=== PATIENT | female | born 1990 | race Caucasian/White ===

== ENCOUNTER 2018-07-12 12:07 | Inpatient (IN) | payer OTHER ==
[2018-07-12] VITALS (15 sets, daily range): BP systolic 103–115; BP diastolic 45–68
[~2018-07-12] VITALS: Ht 162.6 cm; Wt 64.5 kg
--- NOTE | 2018-07-12 12:13 | NUR ---
PATRICIA FROM PD STATION-- PER REPORT PT WALKED IN TO [facility] STATION. PATIENT RECEIVED, SCREAMING AND YELLING, APPEARS ANXIOUS AND AGITATION. PATIENT IS CONFUSED AND NOT COOPERATIVE. PATIENT IS AFEBRILE. TACHY ON TELE MONITOR. SOCORRO WRAPPER DIPPER AT BEDSIDE FOR EVAL
[2018-07-12] MEDS ORDERED: HALOPERIDOL LACTATE INJ 5 MG/ML VIAL ONE (12:17)
[2018-07-12] MEDS ORDERED: LORAZEPAM INJ 2 MG/ML VIAL ONE (12:17)
[2018-07-12] MEDS ORDERED: diphenhydrAMINE HCL 50 MG/ML VIAL ONE (12:17)
[2018-07-12 12:22] LABS: BASOPHILS # (AUTO) 0.2 /CMM (0.0-0.2); BASOPHILS % (AUTO) 1.7 % (0.0-2.0); EOSINOPHILS % (AUTO) 0.1 % (0.0-6.0); HEMATOCRIT 44 % (33-45); HEMOGLOBIN 14.3 g/dL (11.5-14.8); LYMPHOCYTES # (AUTO) 2.3 /CMM (0.8-4.8); LYMPHOCYTES % (AUTO) 21.3 % (20.0-44.0); MEAN CORPUSCULAR HEMOGLOBIN 25 PG (26.0-33.0); MEAN CORPUSCULAR HGB CONC 32 g/dl (31.0-36.0); MEAN CORPUSCULAR VOLUME 78 fL (82-100); MONOCYTES # (AUTO) 0.7 /CMM (0.1-1.30); MONOCYTES % (AUTO) 6.8 % (2.0-12.0); NEUTROPHILS # (AUTO) 7.7 /CMM (1.8-8.9); NEUTROPHILS % (AUTO) 70.1 % (43.0-81.0); PLATELET COUNT (AUTO) 546 /CMM (150-450); RDW COEFFICIENT OF VARIATION 13.4 (11.5-15.0); WHITE BLOOD COUNT (AUTO) 10.9 K/uL (4.3-11.0)
[2018-07-12] MEDS ORDERED: HALOPERIDOL LACTATE INJ 5 MG/ML VIAL IM ONE (12:30)
[2018-07-12] MEDS ORDERED: diphenhydrAMINE HCL 50 MG/ML VIAL IM ONE (12:30)
[2018-07-12] MEDS ORDERED: LORAZEPAM INJ 2 MG/ML VIAL IM ONE (12:30)
[2018-07-12] MEDS ORDERED: IV NS 0.9% 1,000 ML BAG IV ONE (12:30)
--- NOTE | 2018-07-12 12:33 | NUR ---
EKG IN PROGRESS
[2018-07-12 12:47] LABS: ALANINE AMINOTRANSFERASE 18 U/L (12-78); ALBUMIN 4.5 g/dL (3.4-5.0); ALKALINE PHOSPHATASE 127 U/L (46-116); ASPARTATE AMINOTRANSFERASE 50 U/L (15-37); BILIRUBIN,DIRECT 0.2 mg/dL (0.0-0.2); BILIRUBIN,TOTAL 0.9 mg/dL (0.2-1.0); CALCIUM, SERUM 9.5 mg/dL (8.5-10.1); CARBON DIOXIDE 24 mmol/L (21-32); CHLORIDE 104 mmol/L (98-107); CREATININE 1.3 mg/dL (0.6-1.3); GLUCOSE 101 mg/dL (74-106); POTASSIUM 4.1 mmol/L (3.5-5.1); SALICYLATE 10.5 mg/dL (2.8-20.0); SODIUM SERUM 145 mmol/L (136-145); TOTAL PROTEIN, SERUM 9.9 g/dL (6.4-8.2); UREA NITROGEN, BLOOD 27 mg/dL (7-18)
[2018-07-12 12:47] LABS: APPEARANCE,URINE Cloudy (CLEAR); BILIRUBIN,URINE SMALL (NEGATIVE); BLOOD, URINE Trace-lysed Ery/uL (NEGATIVE); COLOR,URINE Dark (YELLOW); KETONES,URINE 15 (NEGATIVE); LEUKOCYTE ESTERASE ,URINE Negative (NEGATIVE); NITRITE, URINE Negative (NEGATIVE); UGLUCOSE Negative (NEGATIVE)
[2018-07-12 12:50] LABS: ACETAMINOPHEN 0 ug/ml (10-30); ALCOHOL, BLOOD < 3 mg/dL (0-0)
[2018-07-12 12:52] LABS: PROTEIN,URINE >300 mg/dl (NEGATIVE)
[2018-07-12 12:59] LABS: RBC,URINE 0-2 /HPF (0-2)
[2018-07-12 13:00] LABS: BACTERIA,URINE Moderate /HPF (None Seen); SQUAMOUS EPITHELIAL CELL,UR Moderate /HPF (None Seen)
[2018-07-12] MEDS ORDERED: ACETAMINOPHEN 650 MG/SUPP.RECT RC ONE ×2 (13:00→13:30)
[2018-07-12 13:01] LABS: URINE AMORPHOUS URATE Many /HPF (None Seen)
[2018-07-12 13:13] LABS: THYROID STIMULATING HORMONE < 0.007 uIU/mL (0.358-3.74)
--- NOTE | 2018-07-12 14:27 | NUR ---
ICU 255
[2018-07-12] MEDS ORDERED: NOREPINEPHRINE 8 MG in IV D5W 500 ML IV PRN (14:30)
[2018-07-12] MEDS ORDERED: ONDANSETRON HCL/PF 4 MG/2 ML VIAL IVP PRN (14:30)
[2018-07-12] MEDS ORDERED: LORAZEPAM INJ 2 MG/ML VIAL IV PRN (14:30)
--- NOTE | 2018-07-12 15:39 | NUR ---
received pt from ER, Dx hyperthyroidism, pt is altered, she is in deep sleep s/p Haldol, Ativan and Benadryl given in ER; ST, lungs are clear, no edema, on 2L 02 sat well, NG will be inserted for meds, diaper on, BL wrist restraints on, v/s stable, no pain.
[2018-07-12] MEDS: PROPRANOLOL LA 60 MG CAP.SA.24H PO SCH ×2 (16:13→22:05)
[2018-07-12] MEDS: POTASSIUM IODIDE PO SCH (16:13)
[2018-07-12] MEDS: IODINE PO SCH (16:13)
[2018-07-12] MEDS: PROPYLTHIOURACIL 50 MG TABLET PO SCH ×2 (16:13→23:06)
[2018-07-12] MEDS ORDERED: IV NS 0.9% 500 ML IV ONE (16:30)
[2018-07-12] MEDS ORDERED: IV NS 0.9% 1,000 ML BAG IV SCH (16:30)
[2018-07-12] MEDS: IV NS 0.9% 1,000 ML IV PRN (16:54)
[2018-07-12] MEDS ORDERED: POTASSIUM IODIDE 1 GM/ML PO SCH (17:00)
--- NOTE | 2018-07-12 17:12 | NUR ---
pt is resting in the bed, more alert, ST, NG and F/C inserted, restraints on, bolus NS 500 cc given, v/s stable, no pain, pt cleaned, changed and repositioned q2hrs.
[2018-07-12] MEDS ORDERED: hydrALAZINE HCL IV 20 MG VIAL IV PRN (17:30)
[2018-07-12] MEDS: HYDROCORTISONE 20 MG TABLET PO SCH ×2 (17:53→22:05)
[2018-07-12] MEDS ORDERED: PROPYLTHIOURACIL 50 MG TABLET PO ONE (18:00)
--- NOTE | 2018-07-12 19:30 | NUR ---
Received patient from day shift RN.Patient Lethargic and restless with bilateral soft wrist restraints on for safety measures.Patient oriented to name and place.ST per monitor.With O2 at 2L NC saturation 98%.Verified placement of NGT R nares NGT patent and clamped.FC to gravity drainage with yellow urine. Turned and repositioned.Denies pain.
--- NOTE | 2018-07-12 19:40 | NUR ---
Patient left for CT HEAD via bed in stable condition accompanied by portable pinch riveter and ED YARD MANAGER.
--- NOTE | 2018-07-12 20:00 | NUR ---
Patient back from CT in stable condition.
--- NOTE | 2018-07-12 22:00 | NUR ---
Patient woke up alert and oriented x 3.Disconnected self from both soft wrist restraints. No circulatory impairment noted.Tries to get out of bed.Fall precaution maintained.Patient instructed to remain in bed.Call light at bedside and bed exit alarm on.Care explained and verbalized understanding.
--- NOTE | 2018-07-12 22:25 | NUR ---
Per Patient instructions to call her mother Ignacio to let her know that she can not work tomorrow but probably saturday.That mother will call her work department about her situation.Able to talked To Ignacio message delivered.
[2018-07-13] VITALS (35 sets, daily range): BP systolic 80–123; BP diastolic 23–65
[2018-07-13] MEDS: IV NS 0.9% 1,000 ML IV PRN ×2 (02:40→11:37)
[2018-07-13] MEDS: HYDROCORTISONE 20 MG TABLET PO SCH (04:00)
--- NOTE | 2018-07-13 04:00 | NUR ---
Patient resting.VS remains stable.IVF infusing well.BM x 1.Bed bath rendered.Complete linens changed.Independent with bed mobility.Denies pain or sob,nausea or vomiting.Fall precaution maintained with call light at bedside.
[2018-07-13] MEDS: PROPRANOLOL LA 60 MG CAP.SA.24H PO SCH (04:01)
[2018-07-13 04:39] LABS: BASOPHILS % (AUTO) 0.2 % (0.0-2.0); HEMATOCRIT 31 % (33-45); HEMOGLOBIN 10.1 g/dL (11.5-14.8); LYMPHOCYTES # (AUTO) 1.8 /CMM (0.8-4.8); LYMPHOCYTES % (AUTO) 30.1 % (20.0-44.0); MEAN CORPUSCULAR HEMOGLOBIN 26 PG (26.0-33.0); MEAN CORPUSCULAR HGB CONC 32 g/dl (31.0-36.0); MEAN CORPUSCULAR VOLUME 80 fL (82-100); MONOCYTES # (AUTO) 0.6 /CMM (0.1-1.30); MONOCYTES % (AUTO) 10.2 % (2.0-12.0); NEUTROPHILS # (AUTO) 3.5 /CMM (1.8-8.9); NEUTROPHILS % (AUTO) 59.5 % (43.0-81.0); PLATELET COUNT (AUTO) 314 /CMM (150-450); RDW COEFFICIENT OF VARIATION 14.3 (11.5-15.0); WHITE BLOOD COUNT (AUTO) 5.9 K/uL (4.3-11.0)
[2018-07-13] MEDS: PROPYLTHIOURACIL 50 MG TABLET PO SCH (05:00)
[2018-07-13 05:04] LABS: ALANINE AMINOTRANSFERASE 15 U/L (12-78); ALBUMIN 2.9 g/dL (3.4-5.0); ALKALINE PHOSPHATASE 80 U/L (46-116); ASPARTATE AMINOTRANSFERASE 49 U/L (15-37); BILIRUBIN,TOTAL 0.6 mg/dL (0.2-1.0); CALCIUM, SERUM 8.2 mg/dL (8.5-10.1); CARBON DIOXIDE 22 mmol/L (21-32); CHLORIDE 107 mmol/L (98-107); CREATININE 0.5 mg/dL (0.6-1.3); GLUCOSE 80 mg/dL (74-106); MAGNESIUM 1.8 mg/dL (1.8-2.4); PHOSPHORUS 4.6 mg/dL (2.5-4.9); SODIUM SERUM 137 mmol/L (136-145); TOTAL PROTEIN, SERUM 6.7 g/dL (6.4-8.2); UREA NITROGEN, BLOOD 18 mg/dL (7-18)
[2018-07-13 05:07] LABS: POTASSIUM 2.8 mmol/L (3.5-5.1)
[2018-07-13 05:12] LABS: CREATINE KINASE MB 1.9 ng/mL (0-3.6); THYROID STIMULATING HORMONE < 0.007 uIU/mL (0.358-3.74)
--- NOTE | 2018-07-13 05:45 | NUR ---
DNP,FRANK LOMAX paged for critical result K+ 2.8 awaiting for orders.
--- NOTE | 2018-07-13 07:14 | NUR ---
Still waiting for Jada DANIELS for orders.Report given to DAVIDE Martin day shift RN for continuity of care.
[2018-07-13] MEDS ORDERED: IV NS 0.9% 1,000 ML BAG IV ONE (07:30)
[2018-07-13] MEDS ORDERED: POTASSIUM CL. PREMIX PERIPHER. 50 ML IV SCH (07:30)
--- NOTE | 2018-07-13 08:00 | NUR ---
[place]. here to see pt. ok to d/c hong ok to d/c selwyn martinez. ok to ambulate to the bathroom. new diet ordered.
[2018-07-13] MEDS ORDERED: POTASSIUM CHLORIDE 20 MEQ TAB.PRT.SR PO ONE (08:30)
--- NOTE | 2018-07-13 08:30 | NUR ---
kcl first bag initiated. pt complains of severe pain at the IV site. Good blood return, kcl stopped. El notified. KCL changed to PO form.
--- NOTE | 2018-07-13 08:42 | NUR ---
RT PATIENT AWAKE, ALERT, FOLLOWING COMMANDS. ON ROOM AIR WITH ZERO SOB. PATIENT VERBALLY REFUSED ABG. RN NOTIFIED
[2018-07-13] MEDS: IODINE PO SCH (08:55)
[2018-07-13] MEDS: POTASSIUM IODIDE PO SCH (08:55)
[2018-07-13] MEDS: PANTOPRAZOLE 40 MG VIAL IV SCH (08:55)
--- NOTE | 2018-07-13 10:00 | NUR ---
Low bp discussed with Dr. Akhtar. Ok to continue on propranolol. Dose adjusted.
[2018-07-13] MEDS: METHIMAZOLE (5MG) 5 MG TABLET PO SCH ×3 (11:47→17:46)
[2018-07-13] MEDS: PROPRANOLOL HCL 10 MG TABLET PO SCH ×3 (11:48→17:46)
--- NOTE | 2018-07-13 21:00 | NUR ---
DR AMADOR LOFTON AT BEDSIDE FROM PSYCH CONSULT TO EVALUATE PT, NEW ORDERS RECEIVED
[2018-07-13] MEDS: TRAZODONE 50 MG TABLET PO SCH (21:15)
[2018-07-14] VITALS (40 sets, daily range): BP systolic 75–163; BP diastolic 27–76
[2018-07-14] MEDS: IV NS 0.9% 1,000 ML IV PRN (01:00)
--- NOTE | 2018-07-14 02:57 | NUR ---
PT REFUSING BATH AT THIS TIME, PT IS INDEPENDENT ADLS
[2018-07-14 04:30] LABS: BASOPHILS % (AUTO) 0.4 % (0.0-2.0); HEMATOCRIT 32 % (33-45); HEMOGLOBIN 9.9 g/dL (11.5-14.8); MEAN CORPUSCULAR HEMOGLOBIN 25 PG (26.0-33.0); MEAN CORPUSCULAR HGB CONC 31 g/dl (31.0-36.0); MEAN CORPUSCULAR VOLUME 81 fL (82-100); MONOCYTES # (AUTO) 0.5 /CMM (0.1-1.30); MONOCYTES % (AUTO) 10.5 % (2.0-12.0); NEUTROPHILS # (AUTO) 1.7 /CMM (1.8-8.9); NEUTROPHILS % (AUTO) 32.1 % (43.0-81.0); PLATELET COUNT (AUTO) 281 /CMM (150-450); RDW COEFFICIENT OF VARIATION 14.7 (11.5-15.0); RED BLOOD CELL COUNT(AUTO) 3.91 MIL/uL (4.0-5.2); WHITE BLOOD COUNT (AUTO) 5.2 K/uL (4.3-11.0)
[2018-07-14 04:46] LABS: CALCIUM, SERUM 8.1 mg/dL (8.5-10.1); CARBON DIOXIDE 26 mmol/L (21-32); CHLORIDE 111 mmol/L (98-107); CREATININE 0.5 mg/dL (0.6-1.3); GLUCOSE 122 mg/dL (74-106); POTASSIUM 3.3 mmol/L (3.5-5.1); SODIUM SERUM 142 mmol/L (136-145); UREA NITROGEN, BLOOD 11 mg/dL (7-18)
[2018-07-14 05:00] LABS: CREATINE KINASE, TOTAL 811 U/L (26-192); THYROID STIMULATING HORMONE < 0.007 uIU/mL (0.358-3.74)
[2018-07-14 05:24] LABS: CREATINE KINASE MB 1.4 ng/mL (0-3.6)
[2018-07-14] MEDS: PANTOPRAZOLE 40 MG VIAL IV SCH (09:52)
[2018-07-14] MEDS: METHIMAZOLE (5MG) 5 MG TABLET PO SCH ×3 (09:52→17:08)
[2018-07-14] MEDS: PROPRANOLOL HCL 10 MG TABLET PO SCH ×3 (09:53→17:07)
[2018-07-14] MEDS ORDERED: POTASSIUM CHLORIDE 20 MEQ TAB.PRT.SR PO SCH (10:30)
[2018-07-14] MEDS ORDERED: POTASSIUM CHLORIDE 20 MEQ TAB.PRT.SR PO ONE (11:30)
[2018-07-14] MEDS ORDERED: IV NS 0.9% 500 ML IV ONE (11:30)
--- NOTE | 2018-07-14 12:43 | NUR ---
Social service consult requested by ROWAN Dodge for reason not mentioned. Pt. is 27 year old female who was admitted to [facility] for meth toxicity and hyperthyroidism. SW met with pt. bedside in ICU. Pt. is alert and oriented x 4. Pt. is friendly and cooperative with SW during the assessment. Pt. states she lives with her aunt in an apartment located at [address] [place] [address] in [place]. [place]. Pt's emergency contact is her aunt Ignacio Luna . Pt. works at [employer]. Pt. states she drinks alcohol socially, preferably on the weekends. Pt. also uses marijuana and cocaine and last used this weekend prior to admission. SW offered pt. referrals to drug treatment programs, however pt. declined stating, " I can stop when I want to, and I am going to stop due to the medications I have to take." Pt. stated, " I only do cocaine when I am partying with friends." SW encouraged pt. to stop using drugs. Pt. denies any psychiatric diagnosis and hospitalizations. Pt. denies suicidal and homicidal ideations and visual/auditory hallucinations at this time. Pt. will require a verification of admission letter for her employer at time of discharge. SW to give pt. the letter prior to discharge. No other social service needs are required at this time. SW is available, if needed.
--- NOTE | 2018-07-14 15:00 | NUR ---
ONE EPISODE OF BRADYCARDIA NOTED ON TELEMETRY , PT STATES SHE IS ASYMPTOMATIC, BP AND BRADYCARDIA DISCUSSED WITH ROWAN BENZ. WILL CONTINUE TO MONITOR.
--- NOTE | 2018-07-14 18:00 | NUR ---
PT ASSISTED WITH BED/BATH AND HYGIENE. SHE VERBALIZES SHE IS LOOKING FORWARD TO GO HOME TOMORROW.
--- NOTE | 2018-07-14 19:15 | NUR ---
ICU/RN RECEIVED PT SLEEPING BUT AROUSES EASILY.PT ALERT AND ORIENTED X3.DENIES DISCOMFORT.SNACK GIVEN PER REQUEST.
--- NOTE | 2018-07-14 22:00 | NUR ---
ICU/RN UP TO BATHROOM TO VOID,THEN BACK TO BED WITHOUT INCIDENT.
[2018-07-14] MEDS: TRAZODONE 50 MG TABLET PO SCH (22:41)
--- NOTE | 2018-07-14 23:00 | NUR ---
ICU/RN REFUSED PULSE OXIMETRY.MONITOR SHOWS NSR.
[2018-07-15] VITALS (21 sets, daily range): BP systolic 92–121; BP diastolic 49–75
[2018-07-15 04:25] LABS: BASOPHILS % (AUTO) 0.1 % (0.0-2.0); EOSINOPHILS % (AUTO) 0.2 % (0.0-6.0); HEMATOCRIT 29 % (33-45); HEMOGLOBIN 9.5 g/dL (11.5-14.8); LYMPHOCYTES # (AUTO) 3.1 /CMM (0.8-4.8); LYMPHOCYTES % (AUTO) 58.6 % (20.0-44.0); MEAN CORPUSCULAR HEMOGLOBIN 26 PG (26.0-33.0); MEAN CORPUSCULAR HGB CONC 33 g/dl (31.0-36.0); MEAN CORPUSCULAR VOLUME 80 fL (82-100); MONOCYTES # (AUTO) 0.4 /CMM (0.1-1.30); MONOCYTES % (AUTO) 8.4 % (2.0-12.0); NEUTROPHILS # (AUTO) 1.7 /CMM (1.8-8.9); NEUTROPHILS % (AUTO) 32.7 % (43.0-81.0); PLATELET COUNT (AUTO) 294 /CMM (150-450); RDW COEFFICIENT OF VARIATION 14.5 (11.5-15.0); RED BLOOD CELL COUNT(AUTO) 3.63 MIL/uL (4.0-5.2); WHITE BLOOD COUNT (AUTO) 5.3 K/uL (4.3-11.0)
[2018-07-15 04:37] LABS: CALCIUM, SERUM 7.9 mg/dL (8.5-10.1); CREATININE 0.4 mg/dL (0.6-1.3); POTASSIUM 3.3 mmol/L (3.5-5.1)
[2018-07-15 04:51] LABS: THYROID STIMULATING HORMONE < 0.007 uIU/mL (0.358-3.74)
--- NOTE | 2018-07-15 05:30 | NUR ---
ICU/RN SLEPT MOST OF THE NIGHT.REFUSED BED BATH,STATES "I'LL TAKE A SHOWER LATER OR IF THEY SEND ME HOME,I'LL TAKE A BATH THEN.OFFERS NO COMPLAINTS.VITAL SIGNS STABLE.MONITOR SHOWS NSR-S[facility] MARCOS.
--- NOTE | 2018-07-15 07:10 | NUR ---
RECEIVED PATIENT A/OX4 DENIES SOB, DIFFICULTY BREATHING PAIN. ALL NEEDS ASSESSED AND MET. VS STABLE. TELE NSR. SAFETY, SKIN, AND ASPIRATION PRECAUTIONS IN PLACE. WILL ROUND PRN. IV SITE C/D/I/P
--- NOTE | 2018-07-15 07:26 | NUR ---
ICU/RN REPOR AND CARE OF PT GIVEN TO JEOVANNY Vegas
[2018-07-15] MEDS: PANTOPRAZOLE 40 MG VIAL IV SCH (09:08)
[2018-07-15] MEDS: METHIMAZOLE (5MG) 5 MG TABLET PO SCH ×3 (09:09→16:46)
[2018-07-15] MEDS: PROPRANOLOL HCL 10 MG TABLET PO SCH ×3 (09:28→16:47)
[2018-07-15] MEDS ORDERED: POTASSIUM CHLORIDE 20 MEQ TAB.PRT.SR PO SCH (11:30)
--- NOTE | 2018-07-15 11:35 | NUR ---
VANCE MENDOZA AT BEDSIDE. PER GUT SORTER PATIENT TO BE DOWNGRADED TO MS.
--- NOTE | 2018-07-15 13:00 | NUR ---
ICU TRANSFER AFTER REPORT RECEIVED FROM JEOVANNY GUZMAN VIA WHEELCHAIR. ALL PERSONAL BELONGINGS TRANSFERRED WITH PATIENT. WILL CONTINUE PLAN OF CARE.
--- NOTE | 2018-07-15 13:26 | NUR ---
CARE ENDORSED TO THOMAS CHRISTIANSON. PATIENT TX TO MS RM 204. PER VANCE NEFF TO DC IVF AND CHANGE PROTONIX TO PO
--- NOTE | 2018-07-15 18:16 | NUR ---
CHANGE OF SHIFT REPORT PT RESTING COMFORTABLY IN BED. NO S/S OR C/O PAIN OR DISTRESS NOTED. SIDE RAILS UP X2, CALL LIGHT LEFT WITHIN REACH. PT KEPT CLEAN, DRY, AND COMFORTABLE. NO SIGNIFICANT CHANGES SINCE PREVIOUS SHIFT. WILL GIVE REPORT TO BERNA GUZMAN.
--- NOTE | 2018-07-15 19:20 | NUR ---
MS-2 OPENING NOTES PT IN BED.A/OX4. NO DISTRESS NOTED. SIDE RAILS UP X2, CALL LIGHT WITHIN REACH.PT HAS IV ASSESS ON R A 20G FLUSHING WELL. WILL CONTINUE TO MONITOR
[2018-07-15] MEDS: ACETAMINOPHEN 325 MG TABLET PO PRN (19:59)
[2018-07-15] MEDS: TRAZODONE 50 MG TABLET PO SCH (21:42)
--- NOTE | 2018-07-16 06:34 | NUR ---
MS RN CLOSING NOTES PT RESTING IN BED. NO S/S OR C/O PAIN OR DISTRESS NOTED. SIDE RAILS UP X2, CALL LIGHT WITHIN REACH. ALL NEEDS ATTENDED. POSSIBLE DISCHARGE TODAY.WILL ENDORSE TO NEXT SHIFT FOR KATLIN.
[2018-07-16] MEDS: ACETAMINOPHEN 325 MG TABLET PO PRN (07:19)
[2018-07-16] MEDS ORDERED: PANTOPRAZOLE 40 MG TABLET.DR PO SCH (07:30)
[2018-07-16 07:39] LABS: CALCIUM, SERUM 8.3 mg/dL (8.5-10.1); CREATININE 0.4 mg/dL (0.6-1.3); POTASSIUM 3.7 mmol/L (3.5-5.1)
[2018-07-16] MEDS ORDERED: PROP10TA68 PO (07:39)
[2018-07-16] MEDS ORDERED: METH5TAB70 PO (07:39)
[2018-07-16 08:10] VITALS: BP 126/82
[2018-07-16] MEDS: PROPRANOLOL HCL 10 MG TABLET PO SCH ×2 (08:32→12:52)
[2018-07-16] MEDS: METHIMAZOLE (5MG) 5 MG TABLET PO SCH ×2 (08:32→12:52)
--- NOTE | 2018-07-16 08:42 | NUR ---
MS RN NOTES PATIENT IS A/O X 4, AMBULATES INDEPENDENTLY. BREATHING IN ROOM AIR WITH NO SHORTNESS OF BREATH. PER REPORT PATIENT WAS GIVEN PO PRN TYLENOL FOR HEADACHE AT 0719 WITH RELIEF. GOOD APPETITE, WILL CONT TO MONITOR.
--- NOTE | 2018-07-16 09:41 | NUR ---
RADHA met with pt. bedside and gave pt. verification of admission letter for her employer per her request. No other social service needs are requested at this time. RADHA is available, if needed.
[2018-07-16 12:52] VITALS: BP 111/70
--- NOTE | 2018-07-16 13:45 | NUR ---
MS RN discharged Patient has been cleared for discharge home by . VS remains stable, skin intact. IVC in LFA removed, gauze applied. Discharge instruction given to patient, discussed medication prescription to patient, instructed to follow up with PCP in 1 week, verbalized understanding. Belongings check and send with the patient upon DC. Patient left hosp in stable condition via private car.
== END 2018-07-16 13:45 | disposition home or self-care (01) | DRG 427 ==
LOC: ER 12:08 → ICU 14:39 → MEDSG2 07-15 13:09
PROVIDERS: ADMIT Nurse Practitioner Acute Care; ATTEND Nurse Practitioner Acute Care
DX: E05.20 Thyrotoxicosis with toxic multinodular goiter without thyrotoxic crisis or storm (principal); G92 Toxic encephalopathy; M62.82 Rhabdomyolysis; I45.81 Long QT syndrome; D50.9 Iron deficiency anemia, unspecified; F19.90 Other psychoactive substance use, unspecified, uncomplicated; D47.3 Essential (hemorrhagic) thrombocythemia; E03.9 Hypothyroidism, unspecified; F43.9 Reaction to severe stress, unspecified; Z91.14 Patient's other noncompliance with medication regimen; T50.995A Adverse effect of other drugs, medicaments and biological substances, initial encounter; Z91.19 Patient's noncompliance with other medical treatment and regimen; F32.9 Major depressive disorder, single episode, unspecified; Z79.899 Other long term (current) drug therapy
CPT/HCPCS: 36415; 70450-TC; 71045-TC; 80048-TC; 80053-TC; 80076-TC; 80305; 81000-TC; 82550-TC; 82553-TC; 82962-TC; 83735-TC; 84100-TC; 84439-TC; 84443-TC; 84703-TC; 85025-TC; 86376; 87086-TC; 93307-TC; A4606; C9113; G0480; J1200; J1630; J2060; J3480; J7030; J7040; J7060; Z7610